=== PATIENT | male | born 1950 | race Caucasian/White ===

== ENCOUNTER 2024-07-17 10:06 | Day surgery (SDC) | payer OTHER ==
[2024-07-17] VITALS (9 sets, daily range): BP systolic 129–168; BP diastolic 62–137
[~2024-07-17] VITALS: Ht 177.8 cm; Wt 115.7 kg
[~2024-07-17 10:06] MED LIST: ALBU90OI INH; ANTIFUNGAL30 GM TOP; ARTIFICIAL TEAR15 M2 UD; AZIT250 PO; CARV25 PO; CHLO25B PO; CLOBETASOL EMOL15 G1; CLOP75 PO; DOXY100 PO; DULO30 PO; ELIQUIS5 M2 PO; EZET10 PO; FERSU300 PO; FURO20 PO; HYDRA25 PO; INSULANI SC; JARDIANCE25 MG PO; KETO15TC TOP; LIPITOR80 MG PO; LISI5 PO; Lantus100 UNIT/1; MAGNESIUM OXID400 M1 PO; METF500 PO; MULVITA PO; NARCAN4 M1; NITR.4SL SL; Nitrostat0.4 MG SL; Norco 10-325 T1 EACH PO; OMEP20ER PO; PANT40 PO; PREG150 PO; SALICYLIC ACID TOP; SENN187 PO; SODBIC650 PO; UREA 20% TOP
[2024-07-17] MEDS ORDERED: Heparin Sodium 1000 Units/ML 10ML MDV ONE ×2 (13:53→13:56)
[2024-07-17] MEDS ORDERED: NS 1,000 ML IV ONE ×2 (13:53→13:56)
[2024-07-17] MEDS ORDERED: NS 250 ML IV ONE (13:56)
[2024-07-17] MEDS ORDERED: FentaNYL Citrate 50 MCG/ML 2 ML Injection ONE (14:24)
[2024-07-17] MEDS ORDERED: Midazolam HCl 1MG / ML 2ML Vial ONE (14:24)
--- NOTE | 2024-07-17 15:23 | NUR ---
PT BACK TO RECOVERY FROM LAB. GROIN SITE SOFT AND NON-TENDER PER PT. NO BLEEDING/HEMATOMA NOTED.
--- NOTE | 2024-07-17 16:36 | NUR ---
pt given lunch tray. pt sat to 30 degrees. groin site soft and non-tender per pt. no bleeding/hematoma noted.
[2024-07-17] MEDS ORDERED: Clopidogrel Bisulfate 300 MG TABLET ONE (17:32)
--- NOTE | 2024-07-17 17:45 | NUR ---
pt ambulated to restroom w/o assistance. groin site soft and non-tender per pt. no bleeding/hematoma noted.
--- NOTE | 2024-07-17 17:59 | NUR ---
pt given dc instructions and verbalized understanding. iv out. pt changed. groin site soft and non-tender per pt. no bleeding/hematoma noted. pt given plavix script. pt taken to [facility] via [facility] where he will wait for taxi.
== END 2024-07-17 18:00 | disposition home or self-care (01) ==
LOC: MHTC 10:06
DX: E11.52 Type 2 diabetes mellitus with diabetic peripheral angiopathy with gangrene (principal); I70.261 Atherosclerosis of native arteries of extremities with gangrene, right leg; E11.51 Type 2 diabetes mellitus with diabetic peripheral angiopathy without gangrene; I70.222 Atherosclerosis of native arteries of extremities with rest pain, left leg; I70.1 Atherosclerosis of renal artery; E78.5 Hyperlipidemia, unspecified; I25.10 Atherosclerotic heart disease of native coronary artery without angina pectoris; J44.9 Chronic obstructive pulmonary disease, unspecified; I13.0 Hypertensive heart and chronic kidney disease with heart failure and stage 1 through stage 4 chronic kidney disease, or unspecified chronic kidney disease; E11.22 Type 2 diabetes mellitus with diabetic chronic kidney disease; N18.9 Chronic kidney disease, unspecified; I50.20 Unspecified systolic (congestive) heart failure; G47.33 Obstructive sleep apnea (adult) (pediatric); Z88.1 Allergy status to other antibiotic agents; Z88.8 Allergy status to other drugs, medicaments and biological substances; Z79.899 Other long term (current) drug therapy
CPT/HCPCS: 37224; 75625; 75716; 75774; 76937; 82947; 99152; 99153; A9270; C1725; C1760; C1769; C1874; C1887; C1894; C9765; J1644; J2250; J3010; J7030; J7050; Q9967

== ENCOUNTER 2025-01-29 10:28 | Day surgery (SDC) | payer OTHER ==
[~2025-01-29] VITALS: Ht 177.8 cm; Wt 113.9 kg
[2025-01-29] VITALS (9 sets, daily range): BP systolic 136–159; BP diastolic 45–60
[~2025-01-29 10:28] MED LIST changes: +ACET325 PO; +MAGNESIUM OXID500 MG PO; +SYNJARDY PO; +THERA-D2000 UNIT PO
[2025-01-29] MEDS ORDERED: NS 250 ML IV ONE (11:14)
[2025-01-29] MEDS ORDERED: Heparin Sodium 1000 Units/ML 10ML MDV ONE ×2 (11:15→11:42)
[2025-01-29] MEDS ORDERED: NS 1,000 ML IV ONE ×2 (11:15→11:42)
[2025-01-29] MEDS ORDERED: Midazolam HCl 1MG / ML 2ML Vial ONE (11:54)
[2025-01-29] MEDS ORDERED: FentaNYL Citrate 50 MCG/ML 2 ML Injection ONE (11:55)
--- NOTE | 2025-01-29 12:50 | NUR ---
PT BACK TO RECOVERY ROOM. LAYING FLAT, PT FOLLOWING DIRECTIONS TO KEEP HEAD AND LEGS DOWN. HR IN LOW 40'S. DENIES DIZZINESS. R GROIN SITE HAD KNOT, NOT GROWING IN SIZE. DRESSING CLEAN DRY AND INTACT.
--- NOTE | 2025-01-29 14:40 | NUR ---
PT SAT UP TO 30 DEGREES. RIGHT GROIN SITE SOFT AND NON TENDER. NO BLEEDING.
--- NOTE | 2025-01-29 15:07 | NUR ---
DR NAIDU FROM [facility] NOTIFIED OF PT'S HR IN 40'S. WAS TOLD TO CUT CARVEDILOL TAB IN 1/2 TWICE /DAY AND FOLLOW UP APPOINTMENT REGINA SCHEDULED FOR PT. PT VERBALIZE UNDERSTANDING.
--- NOTE | 2025-01-29 15:22 | NUR ---
PT VERBALIZE D/C INSTRUCTIONS. PT GETTIND DRESSED.
--- NOTE | 2025-01-29 15:56 | NUR ---
IV D/C, CATHETER INTACT. PT WHEELED OUT DO MONTY BRAVO PAPERWORK IN HAND.
== END 2025-01-29 15:45 | disposition home or self-care (01) ==
LOC: MHTC 10:28
DX: E11.51 Type 2 diabetes mellitus with diabetic peripheral angiopathy without gangrene (principal); I70.222 Atherosclerosis of native arteries of extremities with rest pain, left leg; L97.519 Non-pressure chronic ulcer of other part of right foot with unspecified severity; I70.235 Atherosclerosis of native arteries of right leg with ulceration of other part of foot; I13.0 Hypertensive heart and chronic kidney disease with heart failure and stage 1 through stage 4 chronic kidney disease, or unspecified chronic kidney disease; E11.22 Type 2 diabetes mellitus with diabetic chronic kidney disease; N18.9 Chronic kidney disease, unspecified; I50.21 Acute systolic (congestive) heart failure; I25.10 Atherosclerotic heart disease of native coronary artery without angina pectoris; J44.9 Chronic obstructive pulmonary disease, unspecified; E78.5 Hyperlipidemia, unspecified; E11.42 Type 2 diabetes mellitus with diabetic polyneuropathy; K21.9 Gastro-esophageal reflux disease without esophagitis; I25.2 Old myocardial infarction; G47.33 Obstructive sleep apnea (adult) (pediatric); I87.2 Venous insufficiency (chronic) (peripheral); I48.91 Unspecified atrial fibrillation; G89.29 Other chronic pain; E66.9 Obesity, unspecified; Z68.36 Body mass index [BMI] 36.0-36.9, adult; Z87.891 Personal history of nicotine dependence; Z79.01 Long term (current) use of anticoagulants; Z79.02 Long term (current) use of antithrombotics/antiplatelets; Z79.4 Long term (current) use of insulin; Z79.84 Long term (current) use of oral hypoglycemic drugs; Z79.899 Other long term (current) drug therapy; Z88.1 Allergy status to other antibiotic agents; Z88.8 Allergy status to other drugs, medicaments and biological substances; Z95.5 Presence of coronary angioplasty implant and graft; Z95.820 Peripheral vascular angioplasty status with implants and grafts
CPT/HCPCS: 75716; 75774; 76937; 99152; 99153; C1725; C1760; C1769; C1887; C1894; C2623; C9764; J0461; J1644; J2250; J3010; J7030; J7050; Q9967